=== PATIENT | male | born 1950 | race Caucasian/White ===

== ENCOUNTER → 2018-01-16 | Outpatient (CLI) | payer MEDICARE, BC ==
[~2018-01-16] MED LIST: BUPIVACAINE 0.5% 50 ML VIAL. IJ ONE; IOHEXOL 300 MG/ML 50 ML VIAL. INT ART ONE; LIDOCAINE WITH 8.4% SOD BICARB 3 ML DISP.SYRIN. INJ ONE; methylPREDNISolone ACETATE 80 MG/ML VIAL. INJ ONE
--- NOTE | 2018-01-16 14:54 | RAD ---
Fluoroscopically guided right hip joint injection, 01/16/2018: HISTORY: Right hip pain Under local anesthesia, aseptic conditions and fluoroscopic guidance a 22-gauge spinal needle was passed into the right hip joint via an anterior approach. A small amount of iodinated contrast material was injected to confirm intra-articular positioning following which 80 mg of Depo-Medrol mixed with 3 cc of 0.5 percent bupivacaine was injected into the joint as requested. The needle was then removed and hemostasis obtained. 0.7 minutes of fluoroscopy time was utilized. One fluoroscopic spot image was recorded. The patient tolerated the procedure well and left the department in good condition. Electronically signed by: Krish Lainez MD (01/16/2018 2:51 PM) [facility]
== END | disposition home or self-care (01) ==
LOC: RAD 13:08
PROVIDERS: ATTEND Orthopaedic Surgery
DX: M25.551 Pain in right hip (principal)
CPT/HCPCS: 20610; 77002; J1040; J3490; Q9967; 20605

== ENCOUNTER → 2018-01-17 | Outpatient (CLI) | payer MEDICARE, BC ==
[~2018-01-17] MED LIST changes: -BUPIVACAINE 0.5% 50 ML VIAL. IJ ONE; +BUPIVACAINE MPF 0.5% 10 ML VIAL for KCIC. IM ONE; +LIDOCAINE 1% Multi-Dose 20 ML VIAL. ID ONE; -LIDOCAINE WITH 8.4% SOD BICARB 3 ML DISP.SYRIN. INJ ONE; +methylPREDNISolone ACETATE 40 MG/ML VIAL. INT ART ONE; -methylPREDNISolone ACETATE 80 MG/ML VIAL. INJ ONE
--- NOTE | 2018-01-17 13:46 | KCIC ---
EXAM: Right sacroiliac joint injection WITH Fluoroscopic guidance DATE: 01/17/2018 11:30 AM CLINICAL HISTORY: Low back pain, pain with standing and sitting. COMPARISON: Hip radiographs 01/15/2018 TECHNIQUE: The patient was informed of the indications and alternatives for this procedure as well as risks and benefits. No immediate contraindication identified. The patient provided informed, written consent. Laterality was confirmed by the entire team following a time out. Following initial right SI joint localization, a suitable area was sterilely prepped and draped. Local anesthesia was administered with 1% xylocaine. With intermittent fluoroscopic observation, a 22-gauge spinal needle was advanced into the Right sacroiliac joint sheath/capsule with confirmation of intra-synovial position with infusion of less than 1 cc iodinated contrast. Subsequent infusion 1.5 cc of a solution containing 1 mL lidocaine 1%, 1 mL bupivacaine 0.25%, and 1 mL of 40 mg/mL of Depo-Medrol 40 mg. Hemostasis with local pressure. Local clinical exam negative for immediate complication. Patient informed re local potential signs or symptoms that may indicate need to return to ER/Ordering physician for further evaluation. Patient informed re precautionary measures after intra-synovial injection of anesthetic. Patient expressed understanding. Performing Physicians: Dr. Santy Anaya Blood Loss: 0 cc Pre-procedural Pain Scale: 4 Post-procedural Pain Scale: 1 Total Fluoroscopy time: 57 seconds Total spot images taken: 0 Fluoroscopy LIH save image: 1 IMPRESSION: Successful intra-synovial injection right SI joint with steroid and anesthetic per clinical request. Electronically signed by: Jose Anaya MD (01/17/2018 1:42 PM) [id number]
== END | disposition home or self-care (01) ==
LOC: KCIC 11:03
PROVIDERS: ATTEND Orthopaedic Surgery
DX: M53.3 Sacrococcygeal disorders, not elsewhere classified (principal)
CPT/HCPCS: G0260; J1030; Q9967; 20610; 77002; 27096